=== PATIENT | female | born 1985 | race Caucasian/White ===

== ENCOUNTER → 2018-03-22 | Outpatient (CLI) | payer OTHER ==
[2018-03-22 19:11] LABS: RUBELLA IgG QUALITATIVE IMMUNE (IMMUNE)
[2018-03-26 00:07] LABS: RUBEOLA IgG ANTIBODY <25.0 AU/mL (Immune >29.9)
[2018-03-26 00:07] LABS: MUMPS VIRUS IgG ANTIBODY 11.4 AU/mL (Immune >10.9)
== END ==
LOC: M WUC 13:20
DX: Z02.1 Encounter for pre-employment examination (principal)
CPT/HCPCS: 86762

== ENCOUNTER 2018-06-17 11:10 | Emergency (ER) | payer OTHER ==
[2018-06-17 12:02] LABS: HEMATOCRIT 45.3 % (36.0-47.0); HEMOGLOBIN 15.5 g/dl (12.0-15.5); MEAN CORPUSCULAR HEMOGLOBIN 31.1 pg (27.0-33.0); MEAN CORPUSCULAR HGB CONC 34.2 g/dl (32.0-36.5); MEAN CORPUSCULAR VOLUME 90.8 fl (80.0-96.0); PLATELET COUNT, AUTOMATED 296 10^3/uL (150-450); RED BLOOD COUNT 4.99 10^6/uL (4.00-5.40); RED CELL DISTRIBUTION WIDTH 12.3 % (11.5-14.5); WHITE BLOOD COUNT 10.4 10^3/uL (4.0-10.0)
[2018-06-17 12:26] LABS: CONTROL LINE HCG INT CTR LINE PRESENT; HCG, SERUM QUALITATIVE NEGATIVE (NEGATIVE)
[2018-06-17 12:32] LABS: AMPHETAMINES LEVEL URINE NEGATIVE (NEGATIVE); BARBITURATES URINE NEGATIVE (NEGATIVE); BENZODIAZEPINES URINE NEGATIVE (NEGATIVE); CANNABINOIDS URINE NEGATIVE (NEGATIVE); COCAINE METABOLITE URINE NEGATIVE (NEGATIVE); METHADONE URINE NEGATIVE (NEGATIVE); OPIATES URINE NEGATIVE (NEGATIVE); PHENCYCLIDINE URINE NEGATIVE (NEGATIVE)
[2018-06-17 12:36] LABS: ALBUMIN/GLOBULIN RATIO 1.11 (1.00-1.93); ALKALINE PHOSPHATASE 71 U/L (45-117); ALT/SGPT 26 U/L (12-78); ANION GAP 7 MEQ/L (8-16); AST/SGOT 19 U/L (7-37); BILIRUBIN,DIRECT < 0.1 MG/DL (0.0-0.2); BILIRUBIN,TOTAL 0.3 MG/DL (0.2-1.0); BLOOD UREA NITROGEN 15 MG/DL (7-18); CALCIUM LEVEL 9.3 MG/DL (8.5-10.1); CARBON DIOXIDE LEVEL 25 MEQ/L (21-32); CHLORIDE LEVEL 110 MEQ/L (98-107); CREATININE FOR GFR 0.81 MG/DL (0.55-1.30); GLOMERULAR FILTRATION RATE > 60.0 (>60); GLUCOSE, FASTING 93 MG/DL (70-100); POTASSIUM SERUM 4.4 MEQ/L (3.5-5.1); SALICYLATE LEVEL 4.1 MG/DL (5.0-30.0); SODIUM LEVEL 142 MEQ/L (136-145); TOTAL PROTEIN 7.6 GM/DL (6.4-8.2)
[2018-06-17 12:37] LABS: ACETAMINOPHEN LEVEL < 2.0 UG/ML (10.0-30.0); ETHYL ALCOHOL (ETHANOL) < 0.003 % (0.000-0.010)
[2018-06-17] MEDS: NICOTINE 21MG/24HR 1 EA TRANSDERMAL TD (14:44)
[2018-06-17] MEDS: busPIRone 10 MG TAB PO (18:10)
== END 2018-06-18 03:31 | disposition short-term general hospital (02) ==
LOC: M ED 06-18 03:31
DX: F33.9 Major depressive disorder, recurrent, unspecified (principal); R45.851 Suicidal ideations; Z79.899 Other long term (current) drug therapy; Z88.0 Allergy status to penicillin; F17.210 Nicotine dependence, cigarettes, uncomplicated
CPT/HCPCS: 93005

== ENCOUNTER → 2018-10-09 | Outpatient (CLI) | payer OTHER ==
[~2018-10-09] MED LIST: ALPR2TAB3 PO; BUSP30TA PO; PROZ20CA11 PO
== END ==
LOC: M OUTALCOH 08:11
PROVIDERS: ATTEND Psychiatry & Neurology Psychiatry
DX: F10.20 Alcohol dependence, uncomplicated (principal)

== ENCOUNTER 2018-10-31 09:00 | Outpatient (RCR) | payer OTHER | END 2018-11-10 | LOC: M OUTALCOH 09:00 | PROVIDERS: ATTEND Psychiatry & Neurology Psychiatry | DX: F10.20 Alcohol dependence, uncomplicated (principal); F17.200 Nicotine dependence, unspecified, uncomplicated ==

== ENCOUNTER 2018-12-05 10:00 | Outpatient (RCR) | payer OTHER | END 2018-12-10 | LOC: M OUTALCOH 10:00 | PROVIDERS: ATTEND Psychiatry & Neurology Psychiatry | DX: F10.20 Alcohol dependence, uncomplicated (principal); F17.200 Nicotine dependence, unspecified, uncomplicated ==

== ENCOUNTER 2018-12-25 10:51 | Emergency (ER) | payer OTHER ==
[~2018-12-25] VITALS: Ht 157.5 cm; Wt 84.4 kg
[2018-12-25] MEDS ORDERED: ARIP1TAB6 PO (11:01)
[2018-12-25] MEDS ORDERED: FLUO40CA PO (11:01)
[2018-12-25] MEDS ORDERED: ACAM0.05 PO (11:01)
[2018-12-25 12:11] LABS: HEMATOCRIT 43.1 % (36.0-47.0); HEMOGLOBIN 14.4 g/dl (12.0-15.5); MEAN CORPUSCULAR HEMOGLOBIN 30.3 pg (27.0-33.0); MEAN CORPUSCULAR HGB CONC 33.4 g/dl (32.0-36.5); MEAN CORPUSCULAR VOLUME 90.7 fl (80.0-96.0); PLATELET COUNT, AUTOMATED 251 10^3/uL (150-450); RED BLOOD COUNT 4.75 10^6/uL (4.00-5.40); WHITE BLOOD COUNT 10.1 10^3/uL (4.0-10.0)
[2018-12-25 12:34] LABS: AMPHETAMINES LEVEL URINE NEGATIVE (NEGATIVE); BARBITURATES URINE NEGATIVE (NEGATIVE); BENZODIAZEPINES URINE NEGATIVE (NEGATIVE); CANNABINOIDS URINE NEGATIVE (NEGATIVE); COCAINE METABOLITE URINE NEGATIVE (NEGATIVE); METHADONE URINE NEGATIVE (NEGATIVE); OPIATES URINE NEGATIVE (NEGATIVE); PHENCYCLIDINE URINE NEGATIVE (NEGATIVE)
[2018-12-25 12:37] LABS: HCG, SERUM QUALITATIVE NEGATIVE (NEGATIVE)
[2018-12-25 13:05] LABS: ACETAMINOPHEN LEVEL < 2.0 UG/ML (10.0-30.0); ALBUMIN 3.7 GM/DL (3.2-5.2); ALT/SGPT 22 U/L (12-78); BILIRUBIN,DIRECT < 0.1 MG/DL (0.0-0.2); BILIRUBIN,TOTAL 0.2 MG/DL (0.2-1.0); BLOOD UREA NITROGEN 10 MG/DL (7-18); CALCIUM LEVEL 9.2 MG/DL (8.5-10.1); CARBON DIOXIDE LEVEL 23 MEQ/L (21-32); CHLORIDE LEVEL 111 MEQ/L (98-107); CREATININE FOR GFR 0.81 MG/DL (0.55-1.30); ETHYL ALCOHOL (ETHANOL) < 0.003 % (0.000-0.010); GLOMERULAR FILTRATION RATE > 60.0 (>60); GLUCOSE, FASTING 90 MG/DL (70-100); POTASSIUM SERUM 4.3 MEQ/L (3.5-5.1); SALICYLATE LEVEL 3.2 MG/DL (5.0-30.0); SODIUM LEVEL 141 MEQ/L (136-145); TOTAL PROTEIN 7.1 GM/DL (6.4-8.2)
[2018-12-25 14:48] VITALS: BP 133/76
== END 2018-12-25 14:49 | disposition home or self-care (01) ==
LOC: M ED 10:51
DX: F32.9 Major depressive disorder, single episode, unspecified (principal); F10.10 Alcohol abuse, uncomplicated; Z79.899 Other long term (current) drug therapy; Z88.0 Allergy status to penicillin; Z88.8 Allergy status to other drugs, medicaments and biological substances
CPT/HCPCS: 80048; 80076; 80307; 84443; 84703; 85027; 99284; G0480

== ENCOUNTER 2018-12-30 14:00 | Outpatient (RCR) | payer OTHER ==
[~2018-12-30 14:00] MED LIST changes: +ACAM0.05 PO; +ARIP1TAB6 PO; +FLUO40CA PO
[2018-12-31] MEDS ORDERED: TOPI25TA10 PO (11:42)
[2018-12-31] MEDS ORDERED: HYDR50TA70 (11:42)
[2018-12-31] MEDS ORDERED: TRAZ-160 PO (11:42)
[2018-12-31] MEDS ORDERED: FLUO20CA19 PO (14:24)
[2018-12-31] MEDS ORDERED: BUSP10TA PO (14:24)
[2019-01-03] MEDS ORDERED: TOPI25TA10 PO (11:39)
[2019-01-03] MEDS ORDERED: BUSP10TA PO (11:39)
[2019-01-03] MEDS ORDERED: ARIP1TAB6 PO (11:39)
[2019-01-03] MEDS ORDERED: ACAM0.05 PO (11:39)
[2019-01-03] MEDS ORDERED: FLUO20CA19 PO (11:39)
[2019-01-03] MEDS ORDERED: GABA-1171 PO (11:39)
[2019-01-03] MEDS ORDERED: FLUO40CA PO (11:39)
== END 2019-01-10 ==
LOC: M OUTALCOH 14:00
PROVIDERS: ATTEND Psychiatry & Neurology Psychiatry
DX: F10.20 Alcohol dependence, uncomplicated (principal); F17.200 Nicotine dependence, unspecified, uncomplicated

== ENCOUNTER 2018-12-31 11:34 | Inpatient (IN) | payer OTHER ==
[~2018-12-31] VITALS: Ht 157.5 cm; Wt 84.4 kg
[2018-12-31] MEDS ORDERED: TRAZ-160 PO (11:42)
[2018-12-31] MEDS ORDERED: TOPI25TA10 PO (11:42)
[2018-12-31] MEDS ORDERED: HYDR50TA70 (11:42)
[2018-12-31 12:41] LABS: HEMOGLOBIN 14.8 g/dl (12.0-15.5); MEAN CORPUSCULAR HEMOGLOBIN 31.2 pg (27.0-33.0); MEAN CORPUSCULAR HGB CONC 33.6 g/dl (32.0-36.5); MEAN CORPUSCULAR VOLUME 92.6 fl (80.0-96.0); PLATELET COUNT, AUTOMATED 286 10^3/uL (150-450); RED BLOOD COUNT 4.75 10^6/uL (4.00-5.40); WHITE BLOOD COUNT 11.2 10^3/uL (4.0-10.0)
[2018-12-31 13:01] LABS: AMPHETAMINES LEVEL URINE NEGATIVE (NEGATIVE); BARBITURATES URINE NEGATIVE (NEGATIVE); BENZODIAZEPINES URINE NEGATIVE (NEGATIVE); CANNABINOIDS URINE NEGATIVE (NEGATIVE); COCAINE METABOLITE URINE NEGATIVE (NEGATIVE); METHADONE URINE NEGATIVE (NEGATIVE); OPIATES URINE NEGATIVE (NEGATIVE); PHENCYCLIDINE URINE NEGATIVE (NEGATIVE)
[2018-12-31 13:18] LABS: HCG, SERUM QUALITATIVE NEGATIVE (NEGATIVE)
[2018-12-31 13:26] LABS: ACETAMINOPHEN LEVEL < 2.0 UG/ML (10.0-30.0); ALT/SGPT 18 U/L (12-78); BILIRUBIN,DIRECT 0.1 MG/DL (0.0-0.2); BILIRUBIN,TOTAL 0.4 MG/DL (0.2-1.0); BLOOD UREA NITROGEN 14 MG/DL (7-18); CALCIUM LEVEL 9.6 MG/DL (8.5-10.1); CARBON DIOXIDE LEVEL 21 MEQ/L (21-32); CHLORIDE LEVEL 109 MEQ/L (98-107); CREATININE FOR GFR 0.82 MG/DL (0.55-1.30); ETHYL ALCOHOL (ETHANOL) < 0.003 % (0.000-0.010); GLOMERULAR FILTRATION RATE > 60.0 (>60); GLUCOSE, FASTING 92 MG/DL (70-100); POTASSIUM SERUM 4.1 MEQ/L (3.5-5.1); SALICYLATE LEVEL 3.1 MG/DL (5.0-30.0); SODIUM LEVEL 139 MEQ/L (136-145)
[2018-12-31] MEDS ORDERED: FLUO20CA19 PO (14:24)
[2018-12-31] MEDS ORDERED: BUSP10TA PO (14:24)
[2018-12-31] MEDS ORDERED: traZODone 50 MG TAB PO PRN (15:15)
[2018-12-31] MEDS ORDERED: MOM 30ML SUSPENSION UDC PO PRN (15:15)
[2018-12-31] MEDS ORDERED: MAALOX 30 ML SUSP *UDC PO PRN (15:15)
[2018-12-31] MEDS ORDERED: ACETAMINOPHEN TAB 650MG DOSE (2X325MG) PO PRN (15:15)
[2018-12-31 17:48] VITALS: BP 113/81
[2018-12-31] MEDS: ACAMPROSATE CALCIUM 333 MG TABLET (CAMPRAL) PO SCH (20:57)
[2018-12-31] MEDS: TOPIRAMATE (TopAMAX) 25 MG TAB PO SCH (20:57)
[2018-12-31] MEDS: busPIRone 10 MG TAB PO SCH (20:57)
[2019-01-01 06:51] VITALS: BP 97/54
[2019-01-01] MEDS: busPIRone 10 MG TAB PO SCH ×3 (08:42→20:44)
[2019-01-01] MEDS: FLUoxetine 20 MG CAP PO SCH (08:42)
[2019-01-01] MEDS: ACAMPROSATE CALCIUM 333 MG TABLET (CAMPRAL) PO SCH ×2 (08:42→15:52)
[2019-01-01] MEDS ORDERED: busPIRone 10 MG TAB PO SCH (09:00)
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
[2019-01-01] MEDS: GABAPENTIN 100 MG CAP PO SCH ×2 (15:53→20:45)
[2019-01-01 18:37] VITALS: BP 110/71
[2019-01-01] MEDS: TOPIRAMATE (TopAMAX) 25 MG TAB PO SCH (20:45)
[2019-01-02] MEDS: ACAMPROSATE CALCIUM 333 MG TABLET (CAMPRAL) PO SCH ×4 (00:01→20:12)
[2019-01-02 06:38] LABS: HEMATOCRIT 41.1 % (36.0-47.0); HEMOGLOBIN 13.9 g/dl (12.0-15.5); MEAN CORPUSCULAR HEMOGLOBIN 31.4 pg (27.0-33.0); MEAN CORPUSCULAR HGB CONC 33.8 g/dl (32.0-36.5); MEAN CORPUSCULAR VOLUME 92.8 fl (80.0-96.0); PLATELET COUNT, AUTOMATED 248 10^3/uL (150-450); RED BLOOD COUNT 4.43 10^6/uL (4.00-5.40); WHITE BLOOD COUNT 8.8 10^3/uL (4.0-10.0)
[2019-01-02 06:42] VITALS: BP 109/71
--- NOTE | 2019-01-02 06:48 | HPE ---
DATE OF ADMISSION: 01/01/2019 HISTORY OF PRESENT ILLNESS: Please refer to psychiatric history and evaluation for further details on this admission. This examination and history is intended for medical issues, which may need treatment, followup or consultation on this 33-year-old female. PRIMARY CARE PROVIDER: Dr. Christiano Head at the [facility]. ALLERGIES: PENICILLIN, HYDROXYZINE. SOCIAL HISTORY: She is . ETOH: She has a junction history of ETOH abuse. She did have a single relapse approximately three weeks ago. She smokes one pack of cigarettes per day. Recreational drug use, none. PAST MEDICAL HISTORY: Negative. PAST SURGICAL HISTORY: 1. (C) section. 2. Tubal ligation. HOME MEDICATIONS: - Campral 666 mg by mouth three times a day - Abilify 5 mg by mouth nightly - buspirone 10 mg by mouth three times a day - fluoxetine 20 mg by mouth daily and 40 mg by mouth daily - Topamax 25 mg by mouth nightly - trazodone 50 mg by mouth nightly as needed for sleep FAMILY HISTORY: Mother is alive and well. Father is at 73, she is not sure of what. She stated "old age." LABORATORY STUDIES: WBC 11.2, hemoglobin 14.8, hematocrit 44, platelets 286. Chemistries: Sodium 139,m potassium 4.1, chloride 109, CO2 21, BUN 14, creatinine 0.82, TSH 1.96, beta HCG was negative. Urine toxicology was negative. REVIEW OF SYSTEMS: 10-system review was done and was unremarkable. The patient had no complaints. PHYSICAL EXAMINATION: This patient is a 33-year old cooperative female in no acute distress. VITAL SIGNS: Height 62 inches, weight 84.4 kilograms, body mass index (BMI) 34, blood pressure 138/84, pulse 72, respirations 18, Oxygen sat 99 on room air. GENERAL: The patient is awake, alert and oriented times three. HEENT: Pupils equal, round, reactive to light. Extraocular muscles intact. Cornea and sclerae clear. Conjunctiva is normal. No facial asymmetry. Pharynx, tongue and gum is pink and moist. Tongue is midline. NECK: Neck is supple without lymphadenopathy. No thyromegaly. No goiter. Carotids 2+ without bruit. CHEST: Clear to auscultation without wheeze or retraction. HEART: Heart is regular. ABDOMEN: Benign. Bowel sounds positive. GENITOURINARY ()/RECTAL: Not done. EXTREMITIES: Equal strength with full range of motion. No clubbing, cyanosis, and edema. Peripheral pulses are equal and palpable bilaterally. NEUROLOGIC: Cranial nerve II - XII grossly intact. SKIN: Warm and dry. IMPRESSION/PLAN: 1. Psychiatric plan per psychiatry. 2. Mild leukocytosis may be secondary to stress. Will recheck a CBC in the morning. 3. No acute medical issues.
[2019-01-02] MEDS: FLUoxetine 20 MG CAP PO SCH (08:31)
[2019-01-02] MEDS: GABAPENTIN 100 MG CAP PO SCH ×3 (08:31→20:11)
[2019-01-02] MEDS: busPIRone 10 MG TAB PO SCH ×3 (08:31→20:11)
[2019-01-02 11:25] VITALS: BP 122/67
--- NOTE | 2019-01-02 15:31 | MHIPNPDOC ---
[facility] Progress Note Progress Note DATE OF SERVICE: 01/02/19 HISTORY: Chief Complaint Severe anxiety that has mad her think that is not worth to be living like this (with that severe anxiety) History of Present Illness HISTORY OF THE PRESENT ILLNESS: Patient is a 33 -year-old , female, who, according to Ed report: "Patient presented on her own, following appointments with her psychiatrist & therapist at [facility]. She was seen here (by this report writer) 6 days ago for her panic & anxiety. She was offered voluntary admission to [facility], which she declined. Dr. Goldberg phoned in a Rx for Hydroxyzine & provided follow up appointment info, after which patient was D/C home. Today patient returns, stating that she has continued to experience this crippling anxiety. She reports that the Rx following last visit made her "a zombie", leaving her unable to function. She was quite tearful throughout interview. She stopped short of saying that she was suicidal, although has made references to "not able to go on like this" [referring to her constant sx]. She denies any new stressors or other concerns since last visit, other than being unable to control her anxiety during waking hours.". VITAL SIGNS: See below. NEW TEST RESULTS: See below CURRENT MEDICATIONS: See below. MENTAL STATUS EXAMINATION: Patient is a 33-year old female, who is alert, cooperative, plesant, dressed in personal clothes. Speech: Is clear, spontaneous, not pressured, normal rate, rhythm, tone and volume. Language skills are good. Thought processes including: linear, coherent Thought content: she is goal orientated, she is happy about going home tomorrow and be able to spend the Holiday () at home. Abstract reasoning, and computation: good. Description of associations: intact Description of abnormal or psychotic thoughts: denies SI, denies HI, denies thought delusions, denies thoughts of self harm or harming other people. Judgment: improved Insight: good Orientation: x 3. Recent and remote memory: intact. Attention span and concentration: good. Language: Kazakh, well structured, good vocabulary. Fund of knowledge: average. Mood: euthymic, happy Affect: full, reactive, appropriate, congruent with mood. DIAGNOSES: 1. Bipolar disorder, depressed 2. borderline personality disorder 3. alcohol use disorder 4. Nicotine use disorder ASSESSMENT: The patient is very pleasant and cooperative. She has been seen attending groups, more relaxed, more calm, she says that she has been reading a 500 pages book and she is in the middle of it, something she has not been able to do in a long period of time. she is thankful and wants to go to her f/u appointments. she is not reporting medication side effects or adverse effects, she is not suicidal, not homicidal and not psychotic. MANAGEMENT PLAN: Discharge home tomorrow. TIME SPENT: 20 minutes. Vital Signs Vital Signs Date Time Temp Pulse Resp B/P (MAP) Pulse Ox O2 Delivery O2 Flow Rate FiO2 01/02/19 11:25 98.2 71 16 122/67 (85) 12/31/18 17:48 97 12/31/18 15:00 Room Air Laboratory Data 24H Labs Laboratory Tests 2 01/02/19 06:24: Nucleated Red Blood Cells % (auto) 0.0 CBC/BMP Laboratory Tests 01/02/19 06:24 Red Blood Count 4.43, Mean Corpuscular Volume 92.8, Mean Corpuscular Hemoglobin 31.4, Mean Corpuscular Hemoglobin Concent 33.8, Red Cell Distribution Width 12.4 Current Medications Current Medications Acamprosate (Campral) 666 mg TID PO Last administered on 01/02/19at 08:31; Start 12/31/18 at 21:00 Acetaminophen (Tylenol Tab) 650 mg Q6HP PRN PO HEADACHE or DISCOMFORT; Start 12/31/18 at 15:15 Al Hydrox/Mg Hydrox/Simethicone (Mylanta) 30 ml Q4HP PRN PO HEARTBURN/INDIGESTION; Start 12/31/18 at 15:15 Aripiprazole (AbiLIFY) 5 mg QHS PO Last administered on 01/01/19at 20:44; Start 12/31/18 at 21:00 Buspirone HCl (Buspar) 10 mg DAILY PO ; Start 01/01/19 at 09:00; Stop 01/01/19 at 09:00; Status DC Buspirone HCl (Buspar) 10 mg TID PO Last administered on 01/01/19at 08:42; Start 12/31/18 at 21:00; Stop 01/01/19 at 14:57; Status DC Buspirone HCl (Buspar) 20 mg TID PO Last administered on 01/02/19at 08:31; Start 01/01/19 at 16:00 Fluoxetine HCl (PROzac) 60 mg DAILY PO Last administered on 01/02/19at 08:31; Start 01/01/19 at 09:00 Gabapentin (Neurontin) 200 mg TID PO Last administered on 01/02/19at 08:31; Start 01/01/19 at 16:00 Home Med (Med Rec Complete!) ASDIRECTED XX ; Start 12/31/18 at 14:30; Stop 12/31/18 at 14:45; Status DC Magnesium Hydroxide (Milk Of Magnesia) 30 ml DAILYPRN PRN PO CONSTIPATION; Start 12/31/18 at 15:15 Topiramate (TopAMAX) 25 mg QHS PO Last administered on 01/01/19at 20:45; Start 12/31/18 at 21:00 Trazodone HCl (Desyrel) 50 mg QHSP PRN PO INSOMNIA; Start 12/31/18 at 15:15 Allergies Coded Allergies: Penicillins (Verified Allergy, Unknown, RASH/ITCHING, 12/31/18) hydroxyzine (Verified Adverse Reaction, Unknown, SHAKINESS, 12/31/18) A-FIB/CHADSVASC A-FIB History Current/History of A-Fib/PAF?: No Current PO Anticoag Therapy: No Age/Risk Factor Scoring CHADSVASC: CHADSVASC Response (Comments) Value Age Risk Factor Age < 65 years old 0 Gender Risk Factor Female 1 Hx of CHF No 0 Hx of HTN No 0 Hx of Stroke/TIA/or VTE No 0 Hx of Diabetes No 0 Hx of Vascular Disease No 0 Total 1 Treatment Treatment ordered: NONE Reason Anticoagulant not given: Not indicated/[id number] MIKI CROWE MD January 02, 2019 15:16
[2019-01-02 18:08] VITALS: BP 124/65
[2019-01-02] MEDS: TOPIRAMATE (TopAMAX) 25 MG TAB PO SCH (20:11)
[2019-01-03 06:44] VITALS: BP 120/71
[2019-01-03] MEDS: ACAMPROSATE CALCIUM 333 MG TABLET (CAMPRAL) PO SCH (09:10)
[2019-01-03] MEDS: busPIRone 10 MG TAB PO SCH (09:10)
[2019-01-03] MEDS: FLUoxetine 20 MG CAP PO SCH (09:10)
[2019-01-03] MEDS: GABAPENTIN 100 MG CAP PO SCH (09:10)
[2019-01-03] MEDS ORDERED: GABA-1171 PO (11:39)
[2019-01-03] MEDS ORDERED: BUSP10TA PO (11:39)
[2019-01-03] MEDS ORDERED: ARIP1TAB6 PO (11:39)
[2019-01-03] MEDS ORDERED: TOPI25TA10 PO (11:39)
[2019-01-03] MEDS ORDERED: FLUO40CA PO (11:39)
[2019-01-03] MEDS ORDERED: ACAM0.05 PO (11:39)
[2019-01-03] MEDS ORDERED: FLUO20CA19 PO (11:39)
--- NOTE | 2019-01-06 13:56 | MHDSPDOC ---
[facility] Discharge Summary Discharge Summary DATE OF ADMISSION: December 31, 2018 at 15:11 DATE OF DISCHARGE: January 03, 2019 at 14:40 DISCHARGE DIAGNOSES: 1. Bipolar disorder, depressed 2. borderline personality disorder 3. alcohol use disorder 4. Nicotine use disorder REASON FOR ADMISSION: Chief Complaint Severe anxiety that has mad her think that is not worth to be living like this (with that severe anxiety) History of Present Illness HISTORY OF THE PRESENT ILLNESS: Patient is a 33 -year-old , female, who, according to Ed report: "Patient presented on her own, following appointments with her psychiatrist & therapist at [facility]. She was seen here (by this clinical writer) 6 days ago for her panic & anxiety. She was offered voluntary admission to [facility], which she declined. Dr. Goldberg phoned in a Rx for Hydroxyzine & provided follow up appointment info, after which patient was D/C home. Today patient returns, stating that she has continued to experience this crippling anxiety. She reports that the Rx following last visit made her "a zombie", leaving her unable to function. She was quite tearful throughout interview. She stopped short of saying that she was suicidal, although has made references to "not able to go on like this" [referring to her constant sx]. She denies any new stressors or other concerns since last visit, other than being unable to control her anxiety during waking hours.". CONSULTANTS INVOLVED: None TREATMENT AND PROGRESS ON THE UNIT : Upon initial evaluation the patient was very anxious, she said that she had felt so anxious that she had said that if she continued to feel like this. it was not worth living but that she never said because she wanted to kill herself, that she would never do something like that. She mentioned that she had become more and more anxious since her Abilify dose had been increased from 5 mg to 5 mgs PO BID, she didn't know why but she mentioned that it was probably due to the fact that she had felt very nervous about the medication increase and she had been thinking that she was going to [place] a bad reaction. She said that she had responded well to medications before. During this hospitalization thiw clinical writer spoke to Dr. Goldberg, her OP who contacted me and thought that it would be worth to reduce the Abilify to 5 mgs PO daily and to add something for anxiety, either Atarax or Gabapentin. This clinical writer chose Gabapentin and she was started 200 mgs PO TID of this medication, she responded well to it. The patient received Fluoxetine 60 mgs PO daily and she mentioned that her Buspar had been reduced too much and she thought she would do well on 20 mgs PO TID. The patient had a h//o of alcohol use disorder, so, she was taking Acamprosate 666 mgs PO TID and this clinical writer ordered the same amount of this medication. She took Topamax 25 mgs PO QHS and this clinical writer ordered the same medication and the same dose since she had a good response to it previously. After the dose of BuSpar was increased and she was started on Gabapentin, her mood and affect improved, she was less anxious, she frequently smiled while she spoke and she said that she felt very good, not anxious anymore. She adamantly denied suicidal ideation, homicidal ideation or psychosis. She was able to contract for safety and said she would follow up and go to her appointments because she wanted to overcome her illness. HOSPITAL COURSE: As above DISCHARGE ASSESSMENT: The patient was not suicidal, not homicidal and not psych otic at the time of her discharge. She was able to contract for safety, she said that she would f/u with her OP providers. She reported a good response to medications and enied medications side effects or adverse effects. MENTAL STATUS EXAMINATION ON DISCHARGE: Patient is a 33-year old female, who is alert, cooperative, pleasant, dressed in personal clothes. Speech: Is clear, spontaneous, not pressured, normal rate, rhythm, tone and volume. Language skills are good. Thought processes including: linear, coherent Thought content: she is goal orientated, she is happy about going home and be able to spend the Holiday () at home. Abstract reasoning, and computation: good. Description of associations: intact Description of abnormal or psychotic thoughts: denies SI, denies HI, denies thought delusions, denies thoughts of self harm or harming other people. Judgment: improved Insight: good Orientation: x 4 Recent and remote memory: intact. Attention span and concentration: good. Language: Greek, well structured, good vocabulary. Fund of knowledge: average. Mood: euthymic, happy Affect: full, reactive, appropriate, congruent with mood. MEDICATIONS ON DISCHARGE: Scheduled Acamprosate Calcium (Acamprosate Calcium) 333 Mg Tablet., 666 MG PO TID for alchol cravings, #42 Aripiprazole (Aripiprazole) 5 Mg Tablet, 5 MG PO QHS for mood, #7 Buspirone HCl (Buspirone HCl) 10 Mg Tablet, 20 MG PO TID for anxiety, #42 Fluoxetine Hcl (Fluoxetine HCl) 40 Mg Capsule, 40 MG PO DAILY for depression, #7 TAKES WITH 20MG DOSE FOR 60MG TOTAL, NEW DOSE STARTED 12/31/18 Fluoxetine Hcl (Fluoxetine HCl) 20 Mg Capsule, 20 MG PO DAILY for depression, #7 TAKES WITH 40MG DOSE FOR TOTAL 60MG, NEW DOSE STARTED 12/31/18 Gabapentin (Gabapentin) 100 Mg Capsule, 200 MG PO TID for anxiety, #42 Topiramate (Topiramate) 25 Mg Tablet, 25 MG PO QHS for mood, #7 PLAN/FOLLOWUP ARRANGEMENTS: Follow Up Care Education Label * Medical * Medical Follow Up [facility]: PRO TOVAR * Established With This Provider Yes * Therapist DR. TOVAR * Date January 07, 2019 * Time 13:50 * Follow Up Care Education Label * Mental Health Appt 1 * Mental Health [facility] * Established With This Provider Yes * Address of Clinic or Practice [address] [place] [address] A * Follow Up Care Education Label * Chemical Dependency Appt1 * Chemical Dependency [facility] * Established With This Provider Yes * Address of Clinic or Practice [address] [place] [address] * Additional information Walk in hours Sunday through Sunday from 0730am-1230pm The amount of time spent in the coordination of care for this patient was approximately 30 minutes. Vital Signs/I&Os Vital Signs Date Time Temp Pulse Resp B/P (MAP) Pulse Ox O2 Delivery O2 Flow Rate FiO2 01/03/19 06:44 97.5 68 14 120/71 (87) 12/31/18 17:48 97 12/31/18 15:00 Room Air Medications Scheduled Acamprosate Calcium (Acamprosate Calcium) 333 Mg Tablet., 666 MG PO TID for alchol cravings, #42 Aripiprazole (Aripiprazole) 5 Mg Tablet, 5 MG PO QHS for mood, #7 Buspirone HCl (Buspirone HCl) 10 Mg Tablet, 20 MG PO TID for anxiety, #42 Fluoxetine Hcl (Fluoxetine HCl) 40 Mg Capsule, 40 MG PO DAILY for depression, #7 TAKES WITH 20MG DOSE FOR 60MG TOTAL, NEW DOSE STARTED 12/31/18 Fluoxetine Hcl (Fluoxetine HCl) 20 Mg Capsule, 20 MG PO DAILY for depression, #7 TAKES WITH 40MG DOSE FOR TOTAL 60MG, NEW DOSE STARTED 12/31/18 Gabapentin (Gabapentin) 100 Mg Capsule, 200 MG PO TID for anxiety, #42 Topiramate (Topiramate) 25 Mg Tablet, 25 MG PO QHS for mood, #7 Allergies Coded Allergies: Penicillins (Verified Allergy, Unknown, RASH/ITCHING, 12/31/18) hydroxyzine (Verified Adverse Reaction, Unknown, SHAKINESS, 12/31/18) MIKI CROWE MD January 06, 2019 13:53
== END 2019-01-03 14:40 | disposition home or self-care (01) | DRG 753 ==
LOC: M ED 11:34 → M ED INP 15:11 → M PSY 17:08
PROVIDERS: ADMIT Psychiatry & Neurology Psychiatry; ATTEND Psychiatry & Neurology Psychiatry
DX: F31.9 Bipolar disorder, unspecified (principal); F60.3 Borderline personality disorder; F10.10 Alcohol abuse, uncomplicated; F17.210 Nicotine dependence, cigarettes, uncomplicated; Z88.0 Allergy status to penicillin; Z88.8 Allergy status to other drugs, medicaments and biological substances; Z79.899 Other long term (current) drug therapy; Z81.8 Family history of other mental and behavioral disorders; Z81.1 Family history of alcohol abuse and dependence; Z81.3 Family history of other psychoactive substance abuse and dependence